=== PATIENT | male | born 1965 | race Caucasian/White ===

== ENCOUNTER 2017-07-10 11:16 | Inpatient (IN) | payer BC ==
[~2017-07-10] VITALS: Ht 175.3 cm; Wt 97.5 kg
[2017-07-10 11:37] VITALS: BP_SYST 126
[2017-07-10] MEDS ORDERED: NACL 0.9% 1,000 ML IV ONE (13:00)
[2017-07-10 13:28] LABS: HEMATOCRIT 45.8 % (36-54); HEMOGLOBIN 15.8 g/dL (14.0-18.0); MEAN CORPUSCULAR HEMOGLOBIN 31 pg (27-31); MEAN CORPUSCULAR HGB CONC 35 % (32-36); MEAN CORPUSCULAR VOLUME 90 fL (79.0-98.0); PLATELET COUNT (AUTO) 198 K/uL (130-430); RED BLOOD CELL COUNT(AUTO) 5.07 MIL/uL (4.2-6.2); RED CELL DISTRIBUTION WIDTH 12.9 % (9.0-15.0); WHITE BLOOD COUNT (AUTO) 11.1 K/uL (4.8-10.8)
[2017-07-10 13:38] LABS: CALCIUM 9.3 mg/dL (8.4-11.0); CREATININE 1.11 mg/dL (0.55-1.30); POTASSIUM 4.2 mmol/L (3.5-5.1)
[2017-07-10 13:44] LABS: ALBUMIN 3.3 g/dL (3.4-4.8); TOTAL BILIRUBIN 0.6 mg/dL (0.0-1.0)
[2017-07-10 13:47] LABS: BAND % (MANUAL) 5 % (0-6); BASOPHILS % (MANUAL) 0 % (0-2); EOSINOPHILS % (MANUAL) 0 % (0-7); LYMPHOCYTES % (MANUAL) 11 % (20-46); MONOCYTES % (MANUAL) 2 % (0-11)
[2017-07-10] MEDS ORDERED: VANCOMYCIN HCL 1,000 MG in D5W 250 ML IV ONE (15:00)
[2017-07-10] MEDS ORDERED: PIPERACILLIN/TAZO 3.38 GM in D5W 50 ML IV ONE (15:00)
[2017-07-10] MEDS ORDERED: NS 1000 ML BAG IV ONE (15:00)
[2017-07-10] MEDS ORDERED: MORPHINE 4 MG/ML INJ. SYRINGE IVP ONE (15:00)
[2017-07-10] MEDS ORDERED: ONDANSETRON HCL 4 MG/2 ML VIAL IVP ONE (15:00)
[2017-07-10] MEDS ORDERED: GABA-529 PO (15:08)
[2017-07-10] MEDS ORDERED: TRAM50TA92 PO (15:08)
[2017-07-10] MEDS ORDERED: AMLO1TAB65 PO (15:08)
[2017-07-10] MEDS ORDERED: INSULIN REGULAR, HUMAN 10 UNITS/0.1 ML INJ IVP ONE (15:15)
[2017-07-10] MEDS ORDERED: ACETAMINOPHEN 500 MG TABLET PO ONE (15:15)
[2017-07-10] MEDS ORDERED: PIPERACILLIN/TAZOBACTAM 3.375 GM/VIAL (ZOSYN) IV ONE (15:17)
[2017-07-10 15:21] LABS: BILIRUBIN,URINE NEGATIVE (NEGATIVE); BLOOD, URINE 3+ (NEGATIVE); CLARITY/URINE CLEAR (CLEAR); COLOR,URINE YELLOW (YELLOW); GLUCOSE,URINE 3+ (NEGATIVE); KETONES,URINE 2+ (NEGATIVE); LEUKOCYTE ESTERASE ,URINE NEGATIVE (NEGATIVE); NITRITE, URINE NEGATIVE (NEGATIVE); PH,URINE 5.5 (5.0-8.0); PROTEIN URINE 2+ (NEGATIVE); UROBILINOGEN,URINE 0.2 (0.2-1.0)
[2017-07-10] MEDS ORDERED: VANCOMYCIN HCL 1000 MG/VIAL IV ONE (15:29)
[2017-07-10 15:44] LABS: BACTERIA,URINE FEW /HPF (None Seen); RBC,URINE 0-3 /HPF (0-3); WBC,URINE 0-3 /HPF (0-3)
[2017-07-10 15:56] VITALS: BP_SYST 123
[2017-07-10 16:00] VITALS: BP_SYST 128
[2017-07-10] MEDS: INSULIN REGULAR, HUMAN 100 UNITS/ML, 10 ML VIAL (novoLIN R) SUBCUT PRN ×2 (17:13→20:26)
[2017-07-10 20:00] VITALS: BP_SYST 122
[2017-07-10] MEDS: PIPERACILLIN/TAZO 3.375/DEX-IS 50 ML IV SCH (20:23)
[2017-07-10] MEDS: VANCOMYCIN HCL 1,500 MG in NS 250 ML IV SCH (22:50)
[2017-07-10] MEDS ORDERED: HYDROcodone/ACETAMIN 5-325 MG TAB (NORCO/ VICODIN) PO PRN (23:00)
[2017-07-11] VITALS (7 sets, daily range): BP systolic 108–128
[2017-07-11] MEDS ORDERED: GABAPENTIN 100 MG CAPSULE PO ONE (01:00)
[2017-07-11] MEDS ORDERED: traMADol HCL HCL 50 MG TABLET (ULTRAM) PO ONE (01:00)
[2017-07-11] MEDS: PIPERACILLIN/TAZO 3.375/DEX-IS 50 ML IV SCH ×3 (02:21→15:30)
[2017-07-11] MEDS: HYDROcodone/ACETAMIN 5-325 MG TAB (NORCO/ VICODIN) PO PRN ×4 (05:32→22:55)
[2017-07-11] MEDS: INSULIN REGULAR, HUMAN 100 UNITS/ML, 10 ML VIAL (novoLIN R) SUBCUT PRN ×4 (06:56→21:06)
[2017-07-11 07:23] LABS: BASOPHILS # (AUTO) 0.1 K/uL (0.0-0.2); HEMATOCRIT 40.7 % (36-54); HEMOGLOBIN 13.8 g/dL (14.0-18.0); LYMPHOCYTES # (AUTO) 1.8 K/uL (1.0-5.5); LYMPHOCYTES % (AUTO) 21.5 % (20.5-51.5); MEAN CORPUSCULAR HEMOGLOBIN 31 pg (27-31); MEAN CORPUSCULAR HGB CONC 34 % (32-36); MEAN CORPUSCULAR VOLUME 91 fL (79.0-98.0); MONOCYTES # (AUTO) 0.7 K/uL (0.0-1.0); MONOCYTES % (AUTO) 8.6 % (1.7-9.3); NEUTROPHILS # (AUTO) 5.7 K/uL (1.8-7.7); NEUTROPHILS % (AUTO) 68.9 % (40.0-70.0); PLATELET COUNT (AUTO) 175 K/uL (130-430); RED CELL DISTRIBUTION WIDTH 12.8 % (9.0-15.0); WHITE BLOOD COUNT (AUTO) 8.3 K/uL (4.8-10.8)
[2017-07-11 07:48] LABS: ALBUMIN 2.6 g/dL (3.4-4.8); CALCIUM 8.8 mg/dL (8.4-11.0); CREATININE 1.02 mg/dL (0.55-1.30); POTASSIUM 4.4 mmol/L (3.5-5.1); THYROID STIMULATING HORMONE 0.33 uIu/mL (0.34-4.82); TOTAL BILIRUBIN 0.6 mg/dL (0.0-1.0)
[2017-07-11] MEDS: metFORMIN HCL 500 MG TABLET PO SCH ×2 (08:54→17:29)
[2017-07-11] MEDS: LOSARTAN POTASSIUM 50 MG TABLET (COZAAR) PO SCH (08:54)
[2017-07-11] MEDS: VANCOMYCIN HCL 1,500 MG in NS 250 ML IV SCH (11:27)
[2017-07-11] MEDS: AMPICILLIN SODIUM 2 GM in NS 100 ML IV SCH ×2 (18:28→23:27)
[2017-07-11] MEDS: ENOXAPARIN SODIUM 40 MG/0.4 ML SYRINGE SUBCUT SCH (20:57)
[2017-07-12] MEDS: HYDROcodone/ACETAMIN 5-325 MG TAB (NORCO/ VICODIN) PO PRN (02:50)
[2017-07-12] MEDS: AMPICILLIN SODIUM 2 GM in NS 100 ML IV SCH ×4 (05:22→23:30)
[2017-07-12] MEDS: INSULIN REGULAR, HUMAN 100 UNITS/ML, 10 ML VIAL (novoLIN R) SUBCUT PRN ×4 (06:01→20:19)
[2017-07-12 07:50] VITALS: BP_SYST 131
[2017-07-12] MEDS: metFORMIN HCL 500 MG TABLET PO SCH ×2 (08:20→17:41)
[2017-07-12] MEDS: LOSARTAN POTASSIUM 50 MG TABLET (COZAAR) PO SCH (08:21)
[2017-07-12 12:15] VITALS: BP_SYST 125
[2017-07-12] MEDS: ACETAMINOPHEN 325 MG TABLET PO PRN ×2 (15:31→20:14)
[2017-07-12 16:26] VITALS: BP_SYST 138
[2017-07-12 20:10] VITALS: BP_SYST 126
[2017-07-12] MEDS: ENOXAPARIN SODIUM 40 MG/0.4 ML SYRINGE SUBCUT SCH (20:15)
[2017-07-13 00:35] VITALS: BP_SYST 127
[2017-07-13] MEDS: HYDROcodone/ACETAMIN 5-325 MG TAB (NORCO/ VICODIN) PO PRN ×4 (01:19→17:29)
[2017-07-13] MEDS: AMPICILLIN SODIUM 2 GM in NS 100 ML IV SCH ×4 (05:03→23:06)
[2017-07-13] MEDS: INSULIN REGULAR, HUMAN 100 UNITS/ML, 10 ML VIAL (novoLIN R) SUBCUT PRN ×4 (06:09→20:40)
[2017-07-13] MEDS: LOSARTAN POTASSIUM 50 MG TABLET (COZAAR) PO SCH (08:35)
[2017-07-13] MEDS: metFORMIN HCL 500 MG TABLET PO SCH ×2 (08:35→17:31)
[2017-07-13 10:11] VITALS: BP_SYST 127
[2017-07-13 11:21] VITALS: BP_SYST 121
[2017-07-13] MEDS: traMADol HCL HCL 50 MG TABLET (ULTRAM) PO SCH ×2 (14:39→20:35)
[2017-07-13] MEDS: GABAPENTIN 300 MG CAPSULE PO SCH ×2 (14:39→20:35)
[2017-07-13 15:19] VITALS: BP_SYST 115
[2017-07-13 20:01] VITALS: BP_SYST 121
[2017-07-13] MEDS: ENOXAPARIN SODIUM 40 MG/0.4 ML SYRINGE SUBCUT SCH (20:35)
[2017-07-14 00:58] VITALS: BP_SYST 120
[2017-07-14] MEDS: AMPICILLIN SODIUM 2 GM in NS 100 ML IV SCH ×2 (05:14→11:07)
[2017-07-14 07:45] VITALS: BP_SYST 132
[2017-07-14] MEDS: traMADol HCL HCL 50 MG TABLET (ULTRAM) PO SCH ×2 (08:21→14:23)
[2017-07-14] MEDS: LOSARTAN POTASSIUM 50 MG TABLET (COZAAR) PO SCH (08:22)
[2017-07-14] MEDS: metFORMIN HCL 500 MG TABLET PO SCH (08:22)
[2017-07-14] MEDS: GABAPENTIN 300 MG CAPSULE PO SCH ×2 (08:23→14:22)
[2017-07-14] MEDS: INSULIN REGULAR, HUMAN 100 UNITS/ML, 10 ML VIAL (novoLIN R) SUBCUT PRN (11:05)
[2017-07-14] MEDS: ACETAMINOPHEN 325 MG TABLET PO PRN (11:07)
[2017-07-14 11:21] VITALS: BP_SYST 136
[2017-07-14 15:23] VITALS: BP_SYST 127
[2017-07-14] MEDS ORDERED: DOXY-4 PO (16:57)
[2017-07-14] MEDS ORDERED: LINA5TAB2 PO (16:58)
[2017-07-14] MEDS ORDERED: METF1000 PO (16:58)
[2017-07-14] MEDS ORDERED: LOSA50TA3 PO (16:59)
[2017-07-14 17:04] VITALS: BP_SYST 127
== END 2017-07-14 17:20 | disposition home or self-care (01) | DRG 294 ==
LOC: SED 11:16 → STU 15:09 → SMU 07-12 17:22
PROVIDERS: ADMIT Internal Medicine; ATTEND Internal Medicine
DX: I80.3 Phlebitis and thrombophlebitis of lower extremities, unspecified (principal); L03.116 Cellulitis of left lower limb; E11.42 Type 2 diabetes mellitus with diabetic polyneuropathy; I10 Essential (primary) hypertension; I88.9 Nonspecific lymphadenitis, unspecified; E66.9 Obesity, unspecified; I89.0 Lymphedema, not elsewhere classified; Z82.49 Family history of ischemic heart disease and other diseases of the circulatory system; Z79.899 Other long term (current) drug therapy; Z83.3 Family history of diabetes mellitus; Z68.31 Body mass index [BMI] 31.0-31.9, adult
CPT/HCPCS: 36415; 71045; 80053; 80061; 81000-TC; 82962; 83036; 83605; 84443-TC; 85007; 85025; 85027; 87040-TC; 87081; 93971; 96361; 96365; 96366; 96367; 96375; 99291; J0290; J1650; J1815; J2270; J2405; J2543; J3370; J7030; J7050; J7060